=== PATIENT | male | born 1985 | race Caucasian/White ===

== ENCOUNTER 2020-05-30 22:56 | Emergency (ER) | payer SELFPAY ==
[~2020-05-30] VITALS: Ht 188 cm; Wt 93.0 kg
[2020-05-30 23:10] VITALS: BP 148/96
--- NOTE | 2020-05-30 23:14 | NUR ---
35 Y/O BIB AMB A&O X4 WAS FOUND ALOC AT BANK, PT OVERDOSED ON FENTYL (SMOKE), WAS GIVEN 2MG OF NARCAN EN ROUTE, 1 NASAL AND 1 IV. IV ESTABLISHED 18G R AC WITH NS 1000 BOLUS. NKA. PMH: ASTHMA. PT STATES HE LIVES WITH MOTHER.
[2020-05-31 00:32] VITALS: BP 148/96
--- NOTE | 2020-05-31 00:37 | NUR ---
Patient discharged with v/s stable. Written and verbal after care instructions given and explained. Patient verbalized understanding. Ambulatory with steady gait. All questions addressed prior to discharge. Advised to follow up with PMD.
== END 2020-05-31 00:32 | disposition home or self-care (01) ==
LOC: MED 22:56
DX: T40.411A Poisoning by fentanyl or fentanyl analogs, accidental (unintentional), initial encounter (principal); R41.82 Altered mental status, unspecified; J45.909 Unspecified asthma, uncomplicated; Y92.89 Other specified places as the place of occurrence of the external cause
CPT/HCPCS: 99283

== ENCOUNTER 2021-01-20 14:13 | Emergency (ER) | payer SELFPAY ==
[~2021-01-20] VITALS: Ht 190.5 cm; Wt 96.6 kg
[2021-01-20 14:15] VITALS: BP 110/74
--- NOTE | 2021-01-20 14:26 | NUR ---
BIBA FOR OVERDOSE ON FENTANYL. 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 NOW ALERT AND ORIENTED. ABLE TO CARRY INTACT CONVERSATION. PATIENT PLACED ON MONITOR, VS WNL WITH EVEN AND UNLABORED BREATHING. 98% SAT ON ROOM AIR. NO SIGNS OF DISTRESS AT THIS TIME AND DENIES ANY PAIN OR OTHER COMPLAINTS. WILL CONTINUE TO MONITOR.
--- NOTE | 2021-01-20 15:19 | NUR ---
RECEIVED CALL FROM GIRLFRIEND WHO STATES THAT SHE WOULD LIKE A CALL ONCE PATIENT IS DISCHARGED AT [phone]
--- NOTE | 2021-01-20 17:14 | NUR ---
GIRLFRIEND [phone]
--- NOTE | 2021-01-20 18:41 | NUR ---
PT GIVEN FOOD AND WATER. PT AWAKE AND ALERT, VSS.
--- NOTE | 2021-01-20 18:42 | NUR ---
PT MORE AWAKE. VS WNL. SANDWICH AND JUICE GIVEN. TOLERATING PO WELL. WILL ASSESS SOON FOR DC.
[2021-01-20] MEDS ORDERED: NALO4SPR NS (19:09)
--- NOTE | 2021-01-20 19:09 | NUR ---
REPORT GIVEN TO CASI ESTEVEZ
--- NOTE | 2021-01-20 19:11 | NUR ---
RECEIVED REPORT FROM DAVID LANCE.
--- NOTE | 2021-01-20 19:35 | NUR ---
Jad dugan in EDM - 01/20/21 at 1943 by ERMELINAD Patient discharged with v/s stable. Written and verbal after care instructions given and explained. Patient verbalized understanding. Ambulatory with steady gait. ARM BAND REMOVED All questions addressed prior to discharge. Advised to follow up with PMD.
--- NOTE | 2021-01-20 19:35 | NUR ---
Note marianaone in EDM - 01/20/21 at 1945 by ERMELINDA Patient discharged with v/s stable. Written and verbal after care instructions given and explained. Patient alert, oriented and verbalized understanding of instructions. Ambulatory with steady gait. All questions addressed prior to discharge. ID band removed. Patient advised to follow up with PMD. Rx of NALOXONE given. Patient educated on indication of medication including possible reaction and side effects. Opportunity to ask questions provided and answered.
--- NOTE | 2021-01-20 19:35 | NUR ---
Patient discharged with v/s stable. Written and verbal after care instructions given and explained. Patient alert, oriented and verbalized understanding of instructions. Ambulatory with steady gait. All questions addressed prior to discharge. ID band removed. Patient advised to follow up witH PMD. Rx of NALOXONE given. Opportunity to ask questions provided and answered.
[2021-01-20 19:47] VITALS: BP 104/61
== END 2021-01-20 19:35 | disposition home or self-care (01) ==
LOC: MED 14:13
DX: T40.411A Poisoning by fentanyl or fentanyl analogs, accidental (unintentional), initial encounter (principal); J45.909 Unspecified asthma, uncomplicated; Y92.89 Other specified places as the place of occurrence of the external cause
CPT/HCPCS: 99285

== ENCOUNTER 2021-03-02 18:20 | Emergency (ER) | payer SELFPAY ==
[~2021-03-02] VITALS: Ht 185.4 cm; Wt 88.5 kg
[2021-03-02 18:20] VITALS: BP 149/96
[~2021-03-02 18:20] MED LIST: NALO4SPR NS
--- NOTE | 2021-03-02 18:20 | NUR ---
JOSH ALS TO ER BED 4
[2021-03-02] MEDS ORDERED: NACL 0.9% 1,000 ML IV ONE (18:25)
[2021-03-02] MEDS ORDERED: NALOXONE 0.4 MG/ML VIAL IVP ONE (18:25)
[2021-03-02] MEDS ORDERED: DEXTROSE 50% 50 ML SYR IVP ONE (18:25)
--- NOTE | 2021-03-02 18:25 | NUR ---
35 Y/O MALE BIBA FOR C/O FENTANYL OD AND HYPOGLYCEMIA. RESP EVEN AND UNLABORED. AOX4, DROWSY BUT EASILY AROUSABLE. CLAIMS HE TOOK SOME FENTANYL BUT CANNOT REMEMBER THE ROUTE. DENIESN/V/D/CP AT THIS TIME. PMHX: ASTHMA HOME MEDS: DENIES ALLER GIES: DENIES
--- NOTE | 2021-03-02 18:51 | NUR ---
PT BG 74, ERMD MADE AWARE. OK TO GIVE DEXTROSE.
--- NOTE | 2021-03-02 19:23 | NUR ---
Pt report given to JULIO LANCE. Transfer of care at this time.
[2021-03-02] MEDS ORDERED: NALO4SPR NS (20:30)
[2021-03-02 20:50] VITALS: BP 137/78
--- NOTE | 2021-03-02 20:50 | NUR ---
Patient discharged with v/s stable. Written and verbal after care instructions given and explained. Patient alert, oriented and verbalized understanding of instructions. Ambulatory with steady gait. All questions addressed prior to discharge. ID band removed. Patient advised to follow up with PMD. Rx of NARCAN NASAL SPRAY given. Patient educated on indication of medication including possible reaction and side effects. Opportunity to ask questions provided and answered.
== END 2021-03-02 20:50 | disposition home or self-care (01) ==
LOC: MED 18:20
DX: T40.411A Poisoning by fentanyl or fentanyl analogs, accidental (unintentional), initial encounter (principal); R41.82 Altered mental status, unspecified; Y92.89 Other specified places as the place of occurrence of the external cause; E87.6 Hypokalemia
CPT/HCPCS: 96374; 96375; 99291; J2310; J7030; 93005

== ENCOUNTER 2021-07-28 19:04 | Emergency (ER) | payer SELFPAY ==
[~2021-07-28] VITALS: Ht 188 cm; Wt 93.2 kg
--- NOTE | 2021-07-28 19:08 | NUR ---
JOSH, PT TO WAIT IN LOBBY
[2021-07-28 19:39] VITALS: BP 126/69
--- NOTE | 2021-07-28 19:41 | NUR ---
PT TAKEN BACK TO LOBBY VIA W/C
--- NOTE | 2021-07-28 20:53 | NUR ---
PT TAKEN TO BED 11 VIA W/C
--- NOTE | 2021-07-28 20:59 | NUR ---
ERMD AT BEDSIDE
--- NOTE | 2021-07-28 21:06 | NUR ---
36 YO/M PRESENTS TO ED W C/O DOG BITE X2 HOURS AGO, REPORTS DOG SEEMED TO HAVE BEEN INJURED BY ANTS AND WHEN PT TRIED TO TOUCH THE DOG THE DOG BIT HIM. PT REPORTS HIS GIRLFRIEND FILED A DOG BITE REPORT W THE DOG POUND. LAST TDAP X7 YEARS AGO. PT DENIES ANY PAIN TO WOUNDS. PT HAS MULTIPLE WOUNDS TO POSTERIOR HANDS, BLEEDING CONTROLLED. PMH: ASTHMA ALLERGIES: DENIES
[2021-07-28] MEDS ORDERED: AMOX-1230 PO (22:13)
[2021-07-28] MEDS: LIDOCAINE/EPI 1% 1:100000 20 ML VIAL INJ ONE (22:35)
[2021-07-28] MEDS ORDERED: BACITRACIN OINT 500 UNITS/GM PKT TP ONE (22:54)
[2021-07-28 23:12] VITALS: BP 124/62
== END 2021-07-28 23:12 | disposition home or self-care (01) ==
LOC: MED 19:04
DX: S61.411A Laceration without foreign body of right hand, initial encounter (principal); S61.412A Laceration without foreign body of left hand, initial encounter; Z23 Encounter for immunization; J45.909 Unspecified asthma, uncomplicated; Z79.899 Other long term (current) drug therapy; W54.0XXA Bitten by dog, initial encounter; Y93.89 Activity, other specified; Y92.89 Other specified places as the place of occurrence of the external cause; Y99.8 Other external cause status
CPT/HCPCS: 12004; 90471; 90715; 99283; J2001